=== PATIENT | female | born 1985 | race Caucasian/White ===

== ENCOUNTER 2016-11-21 14:28 | Emergency (ER) | payer OTHER ==
[2016-11-21 16:04] VITALS: BP 110/72; PULSE 72; RESP 16; TEMP 98; O2SAT 99
--- NOTE | 2016-11-21 16:55 | C.PDOC ---
History Of Present Illness 31 yo female w/o significant PMHx come in for evaluation of diffuse intermittent sharp pain over abdomen radiating down to suprapubic area, and lower back pain for past 4-5 days. Pt sts, pain is intermittent, self-limited and not related to food intake. Pt admits, " late for menstrual period 2 weeks and not sure if ". Otherwise, pt denies high fever, chills, sore throat , cough, CP, SOB, N/V/D, change in appetite, denies vaginal irritation or discharges, UTI sx. Ambulate to ED for evaluation, appears slightly anxious. Time Seen by Provider: 11/21/16 16:38 Chief Complaint (Nursing): Abdominal Pain History Per: Patient Onset/Duration Of Symptoms: Intermittent Episodes Current Symptoms Are (Timing): Still Present Severity: Moderate Location Of Pain/Discomfort: Diffuse Past Medical History Reviewed: Historical Data, Nursing Documentation, Vital Signs Vital Signs: Last Vital Signs Temp 98 F 11/21/16 16:01 Pulse 72 11/21/16 16:01 Resp 16 11/21/16 16:01 BP 110/72 11/21/16 16:01 Pulse Ox 99 11/21/16 22:53 - Medical History PMH: No Chronic Diseases Surgical History: Appendectomy Family History: States: Unknown Family Hx - Social History Hx Alcohol Use: No Hx Substance Use: No - Immunization History Hx Tetanus Toxoid Vaccination: No Hx Influenza Vaccination: No Hx Pneumococcal Vaccination: No Review Of Systems Except As Marked, All Systems Reviewed And Found Negative. Constitutional: Negative for: Fever, Chills ENT: Negative for: Throat Pain Cardiovascular: Negative for: Chest Pain Respiratory: Negative for: Cough, Shortness of Breath Gastrointestinal: Positive for: Abdominal Pain. Negative for: Nausea, Vomiting , Diarrhea, Constipation, Melena, Hematochezia, Hematemesis Genitourinary: Negative for: Dysuria, Frequency, Incontinence, Vaginal Discharge , Vaginal Bleeding Musculoskeletal: Negative for: Neck Pain, Back Pain Skin: Negative for: Rash Neurological: Negative for: Weakness, Numbness, Headache, Dizziness Physical Exam - Physical Exam Appears: Well, No Acute Distress Skin: Normal Color, Warm, Dry, No Rash Eye(s): bilateral: Normal Inspection Ear(s): Bilateral: Normal Nose: Normal, No Discharge Oral Mucosa: Moist Throat: Normal, No Erythema, No Exudate, No Drooling Neck: Normal, Normal ROM, Supple Cardiovascular: Rhythm Regular Respiratory: Normal Breath Sounds Gastrointestinal/Abdominal: Normal Exam, Soft, No Tenderness, No Mass, No Distention, No Guarding, No Rebound, Other ((+)Left pelvic tenderness. no edema. no palpable masses. no skin changes.) Back: Normal Inspection, No CVA Tenderness Extremity: Normal ROM, No Pedal Edema Neurological/Psych: Oriented x3, Normal Speech ED Course And Treatment - Laboratory Results Urine POC: Negative O2 Sat by Pulse Oximetry: 99 Pulse Ox Interpretation: Normal Progress Note: Urine sample was initailly lost, that very upset pt , refused to provide with another sample. Pt "request" blood test for confirmation. Transvaginal US order. Pt return from US and appears more upset , anxious due to fact of lost UA. Blood test review, Urine sample was resent and results review - all test appears noraml without acute finidngs. US transvaginal results review. Case discussed with ED attending, results review. Pt was evaluated by and no further testing recommend at present time. Pt has clinical findings c/w diffuse abdomenal pain. On discharge, pt refused to sign discharge paper " unsatisfied with treatment due to lost urine". Pt advised and ref. to F/U with PMD, [facility] In 1-2 days for re- eavl. return if any new changes. Disposition Counseled Patient/Family Regarding: Studies Performed, Diagnosis, Need For Followup - Disposition [facility] [Outside] Disposition: HOME/ ROUTINE Disposition Time: 19:25 Condition: STABLE Additional Instructions: Follow up with PMD and [facility] in 2-3 days for re-evaluation and further treatment as need Return to Ed if any worsening or new changes. Instructions: Abdominal Pain (ED) - Clinical Impression Clinical Impression: Diffuse abdominal pain
[2016-11-21 18:15] LABS: RBC URINE < 1 /hpf (0-3); URINE BILIRUBIN NEGATIVE (NEGATIVE); URINE BLOOD NEGATIVE (NEGATIVE); URINE COLOR Yellow (YELLOW); URINE GLUCOSE (UA) NORMAL (Normal); URINE KETONE NEGATIVE (NEGATIVE); URINE PROTEIN NEGATIVE (NEGATIVE); URINE UROBILINOGEN NORMAL mg/dL (0.2-1.0); WBC URINE 4 /hpf (0-5)
[2016-11-21 18:17] LABS: URINE LEUKOCYTE ESTERASE 1+ Leu/uL (Negative)
--- NOTE | 2016-11-21 18:59 | US ---
HISTORY: Left groin pain COMPARISON: None available. TECHNIQUE: Real-time transabdominal pelvic ultrasound was performed. In addition a transvaginal pelvic ultrasound was necessary to better depict pelvic anatomy FINDINGS: UTERUS: Measures 7.5 x 3.5 x 5.2 cm. Anteverted. ENDOMETRIUM: Measures 8 mm in diameter. CERVIX: No cervical abnormality identified. RIGHT OVARY: Measures 2.3 x 1.3 x 2.5 cm. Blood flow is demonstrated. LEFT OVARY: Measures 2.7 x 1.4 x 2.6 cm. Blood flow is demonstrated. FREE FLUID: No significant free fluid noted. OTHER FINDINGS: None. IMPRESSION: Unremarkable pelvic ultrasound.
== END 2016-11-21 20:00 | disposition home or self-care (01) ==
LOC: C.ER 14:28
DX: R10.30 Lower abdominal pain, unspecified (principal)